=== PATIENT | female | born 1965 | race Caucasian/White ===

== ENCOUNTER 2016-12-27 16:14 | Emergency (ER) | payer MEDICARE, MEDICAID | END 2016-12-27 19:13 | disposition home or self-care (01) | DX: S40.021A Contusion of right upper arm, initial encounter (principal); W18.2XXA Fall in (into) shower or empty bathtub, initial encounter; Y93.E1 Activity, personal bathing and showering; Y92.012 Bathroom of single-family (private) house as the place of occurrence of the external cause; G90.1 Familial dysautonomia [Riley-Day] ==

== ENCOUNTER 2017-03-14 15:06 | Outpatient (CLI) | payer MEDICARE, MEDICAID ==
--- NOTE | 2017-03-15 10:27 | Ultrasound Report ---
PELVIC ULTRASOUND: 03/14/2017 CLINICAL INDICATION: Chronic pain. TECHNIQUE: Transabdominal pelvic ultrasound performed for global evaluation. Transvaginal pelvic ul trasound performed for detailed evaluation. Real-time scanning performed and static images obtained. FINDINGS: The uterus is anteverted, measuring 7.1 x 4.6 x 3.4 cm. The endometrial echo complex philippe ures 2 mm. A 2.7 x 2.0 x 1.8 cm intramural leiomyoma is seen in the posterior right myometrium. The right ovary measures 2.9 x 2.2 x 2.0 cm, and appears unremarkable. The left ovary measures 2.9 x 1. 7 x 1.4 cm, and appears unremarkable. No free fluid is present. IMPRESSION: A 2.7 CM RIGHT POSTERIOR INTRAMURAL LEIOMYOMA. JOB #: [id number] EXT JOB #:[id number]
== END 2017-03-14 15:07 | disposition home or self-care (01) ==
LOC: DI 15:06
PROVIDERS: ATTEND Physician Assistant Medical
DX: D25.1 Intramural leiomyoma of uterus (principal)
CPT/HCPCS: 76830; 76856

== ENCOUNTER 2017-06-01 10:05 | Outpatient (CLI) | payer MEDICARE, MEDICAID ==
[2017-06-01 12:19] LABS: FOLLICLE STIMULATING HORMONE 99.26 mIU/mL
[2017-06-01 12:20] LABS: LUTEINIZING HORMONE 31.62 mIU/mL
== END 2017-06-01 10:06 | disposition home or self-care (01) ==
LOC: LAB 10:05
PROVIDERS: ATTEND Obstetrics & Gynecology
DX: R10.2 Pelvic and perineal pain (principal)
CPT/HCPCS: 36415; 83001; 83002

== ENCOUNTER 2018-03-23 09:54 | Outpatient (CLI) | payer MEDICARE, MEDICAID | END 2018-03-23 09:55 | disposition home or self-care (01) | LOC: LAB 09:54 | PROVIDERS: ATTEND Physician Assistant | DX: R10.9 Unspecified abdominal pain (principal); R39.15 Urgency of urination | CPT/HCPCS: 87086 ==

== ENCOUNTER 2018-03-27 08:38 | Outpatient (CLI) | payer MEDICARE, MEDICAID ==
--- NOTE | 2018-03-27 11:51 | CT Report ---
CT ABDOMEN AND PELVIS WITHOUT CONTRAST: 03/27/2018 CLINICAL INDICATION: Right flank pain. TECHNIQUE: Axial CT images of the abdomen and pelvis were obtained without oral or intravenous contrast. FINDINGS: Limited evaluation of the lung bases is unremarkable. ABDOMEN: There is a 2 mm nonobstructing calculus in the lower pole of the right kidney. No hydronephrosis is present. The left kidney is unremarkable. The liver, spleen, pancreas and adrenal glands are unremarkable. The patient is status post cholecystectomy. No bowel dilatation, free gas, or free fluid is present. No abdominal adenopathy is seen. PELVIS: The pelvic organs appear unremarkable. No pelvic adenopathy or free fluid is present. Osseous structures are unremarkable. IMPRESSION: 2 MM NONOBSTRUCTING CALCULUS IN THE LOWER POLE OF THE LEFT KIDNEY. CT DOSE REDUCTION STATEMENT In accordance with CT protocol optimization, one or more of the following dose reduction techniques were utilized for this exam: automated exposure control, adjustment of mA and/or KV based on patient size, or use of iterative reconstructive technique. TD: 03/27/2018 11:38
== END 2018-03-27 08:39 | disposition home or self-care (01) ==
LOC: DI 08:38
PROVIDERS: ATTEND Physician Assistant
DX: R10.9 Unspecified abdominal pain (principal); N20.0 Calculus of kidney
CPT/HCPCS: 74176

== ENCOUNTER 2018-04-06 10:20 | Emergency (ER) | payer MEDICARE, MEDICAID ==
[2018-04-06 10:55] LABS: BILIRUBIN,URINE NEGATIVE (NEGATIVE); GLUCOSE, URINE (UA) NEGATIVE (NEGATIVE); KETONES,URINE (UA) TRACE mg/dL (NEGATIVE); LEUKOCYTE ESTERASE, URINE NEGATIVE (NEGATIVE); NITRITE,URINE NEGATIVE (NEGATIVE); OCCULT BLOOD,URINE NEGATIVE (NEGATIVE); PROTEIN,URINE NEGATIVE (NEGATIVE); UROBILINOGEN,URINE 0.2 (NORMAL) E.U./dL (NORMAL)
[2018-04-06 10:57] LABS: CLARITY,URINE CLEAR (CLEAR)
[2018-04-06 11:17] LABS: BASOPHILS % (AUTO) 0.6 %; EOSINOPHILS % (AUTO) 0.8 %; HGB - HEMOGLOBIN 13.3 g/dL (12.0-16.0); LYMPHOCYTES # (AUTO) 1.9 10^3/uL (1.5-3.5); LYMPHOCYTES % (AUTO) 38.7 %; MEAN CORPUSCULAR HEMOGLOBIN 32.5 pg (27.0-31.0); MEAN CORPUSCULAR HGB CONC 33.9 g/dL (32.0-36.0); MEAN PLATELET VOLUME 8.3 fL (7.9-10.8); MONOCYTES # (AUTO) 0.3 10^3/uL (0.0-1.0); MONOCYTES % (AUTO) 5.7 %; NEUTROPHILS # (AUTO) 2.7 10^3/uL (1.5-6.6); NEUTROPHILS % (AUTO) 54.2 %; PLT - PLATELET COUNT 219 10^3/uL (130-450); RED CELL DISTRIBUTION WIDTH 13.1 % (12.0-15.0); WHITE BLOOD COUNT 4.9 x10^3/uL (4.8-10.8)
[2018-04-06 11:25] LABS: ALBUMIN 4.6 g/dL (3.2-5.5); ALBUMIN/GLOBULIN RATIO 1.5 (1.0-2.2); BILIRUBIN,TOTAL 0.6 mg/dL (0.2-1.0); CALCIUM 9.5 mg/dL (8.5-10.3); CREATININE 0.7 mg/dL (0.4-1.0); TOTAL PROTEIN 7.6 g/dL (6.7-8.2)
[2018-04-06] MEDS ORDERED: SODIUM CHLORIDE 0.9% 1,000 ML IV ONE (12:12)
[2018-04-06] MEDS ORDERED: KETOROLAC 60 MG/2 ML VIAL IVP STA (12:12)
--- NOTE | 2018-04-06 12:15 | ED Physician Documentation ---
History of Present Illness - Stated complaint Stated Complaint: SIDE PX - Chief complaint Chief Complaint: Abd Pain - Additonal information Additional information: hx from pt 53 f known kidney stone dx by CT 2 weeks ago also recent UTI txed with macrobid then elicia still has R flank pain no fever chills but her real concern right now is that she got an STD from her SO - she has pelvic pressure and discharge Review of Systems Constitutional: denies: Fever, Chills GI: reports: Abdominal Pain : reports: Dysuria, Discharge Musculoskeletal: reports: Back pain Endocrine: denies: Easy bruising / bleeding Immunocompromised: denies: Immunocompromised PD PAST MEDICAL HISTORY - Past Medical History Cardiovascular: Other Respiratory: None Endocrine/Autoimmune: None GI: None CLOTH PRESSER: None : None, Frequency, Kidney stones, Other HEENT: None Psych: None Musculoskeletal: None Derm: None - Past Surgical History Past Surgical History: Yes General: Cholecystectomy Ortho: Other /CLOTH PRESSER: section - Present Medications Home Medications: Ambulatory Orders Medication Instructions Recorded Confirmed Doxycycline Hyclate 100 mg PO BID #27 capsule 04/06/18 oxyCODONE [Roxicodone] 5 mg PO Q6H PRN #8 tablet 04/06/18 - Allergies Allergies/Adverse Reactions: Allergies Allergy/AdvReac Type Severity Reaction Status Date / Time iodine AdvReac Respiratory Verified 06/20/13 15:32 - Social History Does the pt smoke?: No Smoking Status: Never smoker Does the pt drink ETOH?: No Does the pt have substance abuse?: No - Immunizations Immunizations are current?: No - POLST Patient has POLST: No POLST Status: Full Code PD ED PE NORMAL - Vitals Vital signs reviewed: Yes - General General: Alert and oriented X 3 - Neck Neck: Supple, no meningeal sign - Cardiac Cardiac: RRR - Respiratory Respiratory: No respiratory distress - Abdomen Abdomen: Normal bowel sounds, Soft, Non tender, Other (no pulsatile mass) - Female Female : 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, Other (large amt yellow purlent dc, + CMT and R pelvic pain on biman, cx sent) - Back Back: No: No CVA TTP (+ R CVA TTP) - Derm Derm: Normal color - Neuro Neuro: Alert and oriented X 3 Results - Vitals Vitals: Vital Signs - 24 hr 04/06/18 04/06/18 10:27 14:04 Temperature 37 C Heart Rate 74 66 Respiratory 18 18 Rate Blood Pressure 140/92 H 135/77 H O2 Saturation 100 100 Oxygen O2 Source Room air - Labs Labs: Microbiology 04/06/18 12:50 Wet Prep - Final Vaginal Laboratory Tests 04/06/18 04/06/18 04/06/18 10:45 10:45 11:00 WBC 4.9 RBC 4.10 L Hgb 13.3 Hct 39.3 MCV 96.0 MCH 32.5 H MCHC 33.9 RDW 13.1 Plt Count 219 MPV 8.3 Neut # (Auto) 2.7 Lymph # (Auto) 1.9 [place] # (Auto) 0.3 Eos # (Auto) 0.0 Baso # (Auto) 0.0 Absolute Nucleated RBC 0.00 Nucleated RBC % 0.0 Sodium Potassium Chloride Carbon Dioxide Anion Gap BUN Creatinine Estimated GFR (MDRD) Glucose Calcium Total Bilirubin AST ALT Alkaline Phosphatase Total Protein Albumin Globulin Albumin/Globulin Ratio Lipase Urine Color LT. YELLOW Urine Clarity CLEAR Urine pH 5.0 Ur Specific [place] <=1.005 <=1.005 Urine Protein NEGATIVE Urine Glucose (UA) NEGATIVE Urine Ketones TRACE Urine Occult Blood NEGATIVE Urine Nitrite NEGATIVE Urine Bilirubin NEGATIVE Urine Urobilinogen 0.2 (NORMAL) Ur Leukocyte Esterase NEGATIVE Ur Microscopic Review NOT INDICATED Urine Culture Comments NOT INDICATED Urine HCG, Qual NEGATIVE 04/06/18 11:00 WBC RBC Hgb Hct MCV MCH MCHC RDW Plt Count MPV Neut # (Auto) Lymph # (Auto) [place] # (Auto) Eos # (Auto) Baso # (Auto) Absolute Nucleated RBC Nucleated RBC % Sodium 137 Potassium 3.7 Chloride 104 Carbon Dioxide 25 Anion Gap 8.0 BUN 13 Creatinine 0.7 Estimated GFR (MDRD) 88 L Glucose 91 Calcium 9.5 Total Bilirubin 0.6 AST 19 ALT 13 Alkaline Phosphatase 51 Total Protein 7.6 Albumin 4.6 Globulin 3.0 Albumin/Globulin Ratio 1.5 Lipase 37 Urine Color Urine Clarity Urine pH Ur Specific [place] Urine Protein Urine Glucose (UA) Urine Ketones Urine Occult Blood Urine Nitrite Urine Bilirubin Urine Urobilinogen Ur Leukocyte Esterase Ur Microscopic Review Urine Culture Comments Urine HCG, Qual - Rads (name of study) pelvic sono with TV Radiology: See rad report (fibroids, mod FF, no TOA, pelvic congestion, cystic focus endometrium) PD MEDICAL DECISION MAKING - ED course ED course: pt requests a tele strip for her neurologist so briefly put her on residential monitor also NS as she has autonomic dysfxn and that is better with NS for pain gave toradol reviewed pt recent outpt workup her urine culture was no growth - just mixed kaylyn her CT showed a non obstructing 2 mm stone inf LEFT kidney (her pain is on the right) no other opathology was seen will test for STDs but do not think pt needs urology intervention for infected stone complications sono neg for TOA pt in sig pain - states cannot take motrin or apap so rx # oxycodone Departure - Departure Disposition: Home, Self Care Clinical Impression: PID (acute pelvic inflammatory disease) Condition: Good Instructions: ED PID Follow-Up: Zamzam Arzola PA-C [Primary Care Provider] - (next week for a recheck and you will need a repeat sonogram in about a month) Prescriptions: Doxycycline Hyclate 100 mg PO BID #27 capsule oxyCODONE [Roxicodone] 5 mg PO Q6H PRN #8 tablet PRN Reason: Severe Pain
[2018-04-06] MEDS ORDERED: LIDOCAINE 1% 2 ML VIAL SUBQ ONE (13:03)
[2018-04-06] MEDS ORDERED: cefTRIAXone 250 MG VIAL IM ONE (13:03)
[2018-04-06] MEDS ORDERED: DOXYCYCLINE 100 MG TABLET PO STA (13:03)
[2018-04-06] MEDS ORDERED: WATER FOR INJECTION,STERILE 10 ML ONE (13:30)
[2018-04-06] MEDS ORDERED: ACETAMINOPHEN 1,000 MG/100 ML 100 ML IV STA (15:57)
--- NOTE | 2018-04-06 16:01 | Ultrasound Report ---
EXAM: PELVIC ULTRASOUND EXAM DATE: 04/06/2018 03:24 PM. CLINICAL HISTORY: PID concern for R TOA. COMPARISON: 03/27/2018. TECHNIQUE: Realtime transabdominal pelvic scan performed to identify the uterus and adnexa and as an overview of other pelvic structures, followed by transvaginal scan to provide greater detail of the u terus and adnexa, with static image documentation. FINDINGS: Technically limited exam. Uterus: 8.9 x 3.4 x 5.4 cm, volume 85 cc. Anteverted position. Normal overall size and echotexture. Masses: Right lateral fibroid measures 3.3 x 3.2 x 3.4 cm. Fundal fibroid measures 2.6 x 1.9 x 2.1 cm . Endometrium: 9 mm. Small amount of fluid or small cystic focus within the endometrium. Cervix: Unremarkable. Right Ovary: 4.5 x 2.3 x 2.0 cm, volume 10.8 cc. Normal echotexture and blood flow. Left Ovary: 3.2 x 2.3 x 2.7 cm, volume 10.4 cc. Normal echotexture and blood flow. Dominant follicle Free Fluid: Moderate amount. Other: Prominent parametrial vessels bilaterally. IMPRESSION: 1. No sonographic evidence of tubo-ovarian abscess. Moderate amount of pelvic free fluid. 2. Prominent pelvic vessels can be seen in pelvic congestion syndrome. 3. Small amount of fluid vs small cystic focus in the endometrium. 4. Uterine fibroids. [facility] Referring Provider Line: [phone] SITE ID: [id number]
[2018-04-06 16:19] LABS: HCG UR QUAL NEGATIVE
[2018-04-06] MEDS ORDERED: oxyCODONE 5 MG TABLET PO STA (16:35)
[2018-04-06 16:45] VITALS: BP 163/69
== END 2018-04-06 17:00 | disposition home or self-care (01) ==
LOC: ED 10:20
DX: N73.9 Female pelvic inflammatory disease, unspecified (principal); Z87.440 Personal history of urinary (tract) infections; Z87.442 Personal history of urinary calculi
CPT/HCPCS: 36415; 76830; 76856; 80053; 81003; 81025; 83690; 85025; 87210; 87491; 87591; 93976; 96374; 99283; 99284; A9270; 81001; 87086

== ENCOUNTER 2021-06-19 08:42 | Emergency (ER) | payer MEDICARE, MEDICAID ==
--- NOTE | 2021-06-19 09:27 | ED Physician Documentation ---
PD HPI OPHTHO - Stated complaint Stated Complaint: LT EYE VISION - Chief complaint Chief Complaint: Heent - History obtained from History obtained from: Patient, Family - History of Present Illness Timing - onset: Yesterday Timing - duration: Days (1) Timing - details: Abrupt onset, Still present Location: Left Quality / character: Other (no pain) Associated symptoms: Decreased vision, Other (bright arch to the medial visual field with floaters to the lateral field). No: Redness, Swelling, Tearing, Discharge, Matting, FB sensation, Photophobia, Double vision, Loss of vision, Headache Contributing factors: Wears glasses. 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 She is developed some floaters to the lateral aspect. This is distressing enough to the patient that she prefers to have her eye closed. She developed this yesterday afternoon and she has not had resolution of her symptoms. Review of Systems Constitutional: denies: Fever Eyes: reports: Decreased vision. denies: Photophobia, Discharge, Irritation Ears: denies: Ear pain Nose: denies: Rhinorrhea / runny nose, Congestion Throat: denies: Sore throat Cardiac: denies: Chest pain / pressure, Palpitations Respiratory: denies: Dyspnea, Cough GI: denies: Abdominal Pain, Nausea, Vomiting, Constipation, Diarrhea : denies: Dysuria, Frequency PD PAST MEDICAL HISTORY - Past Medical History Past Medical History: Yes Cardiovascular: Other Respiratory: None Neuro: Peripheral neuropathy, Other Endocrine/Autoimmune: None GI: None WOOD PILER: None : None, Frequency, Kidney stones, Other HEENT: None Psych: None Musculoskeletal: Fatigue Derm: None Other Past Medical History: small fiber neuropathy. dysautonomia - Past Surgical History Past Surgical History: Yes General: Cholecystectomy Ortho: Other /WOOD PILER: section - Present Medications Home Medications: Ambulatory Orders Medication Instructions Recorded Confirmed No Known Home Medications 06/19/21 06/19/21 - Allergies Allergies/Adverse Reactions: Allergies Allergy/AdvReac Type Severity Reaction Status Date / Time iodine AdvReac Respiratory Verified 06/19/21 08:48 - Social History Does the pt smoke?: No Smoking Status: Former smoker Does the pt drink ETOH?: No Does the pt have substance abuse?: No - Immunizations Immunizations are current?: No - POLST Patient has POLST: No POLST Status: Full Code PD ED PE NORMAL - General General: Alert and oriented X 3, No acute distress, Well developed/nourished, Other (56-year-old female sitting on the gurney with her hand over her left eye with her eye closed) - HEENT HEENT: Atraumatic, PERRL, EOMI, Other (I am not able to get an adequate view of the retina what I am seeing appears normal.) - Neck Neck: Supple, no meningeal sign, No bony TTP - Respiratory Respiratory: No respiratory distress - Derm Derm: Normal color, Warm and dry, No rash - Extremities Extremities: No deformity, No edema - Neuro Neuro: Alert and oriented X 3, 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 There is a buckle at the optic nerve. PD MEDICAL DECISION MAKING - ED course Complexity details: reviewed results, considered differential, d/w patient, d/w family, d/w business analysis consultant (Dr. Reginald Garcia ophthalmology in [place] recommends follow-up tomorrow either with her or Dr. Barr for vitreous detachment. Recommends reduction in physical activity.) ED course: 56-year-old female with acute visual changes with floaters and a sharp bright arc has evidence of vitreal detachment on bedside ultrasound without evidence of retinal detachment. Dr. Garcia is consulted by phone and recommends follow-up tomorrow. Departure - Departure Disposition: 01 Home, Self Care Clinical Impression: Vitreous detachment of left eye Condition: Stable Instructions: Flashes and Floaters, Understanding Vitrectomy Follow-Up: Ida Garcia ARNP [Primary Care Provider] - REGINALD GARCIA MD [Physician No Access] - Da Barr MD [Provider Admit Priv/Credential] - Comments: Reduce your level of activity and follow up with Dr. Barr tomorrow for further examination.
[2021-06-19 10:07] VITALS: BP 114/88
== END 2021-06-19 10:20 | disposition home or self-care (01) ==
LOC: ED 08:42
DX: H43.812 Vitreous degeneration, left eye (principal); Z87.891 Personal history of nicotine dependence
CPT/HCPCS: 99283; 99284